=== PATIENT | male | born 2000 ===

== ENCOUNTER → 2025-09-09 | Outpatient (REF) | payer OTHER ==
[2025-09-09 14:30] LABS: SEMEN APPEARANCE OPAQUE (OPAQUE); SEMEN VISCOSITY LIQUID (LIQUID); SEMEN VOLUME 6.0 ml (2.0-5.0); SPERM CONCENTRATION 35.7 M/ml (>=15.0); WBC CONCENTRATION <=1 M/ml (<=1 M/ml)
[2025-09-09 14:31] LABS: TOTAL PROGRESSIVE SPERM 129.6 M/Ejac.
== END ==
LOC: M LAB REF 14:25
PROVIDERS: ATTEND Internal Medicine
DX: N46.9 Male infertility, unspecified (principal)